=== PATIENT | male | born 1940 | race Caucasian/White ===

== ENCOUNTER 2016-04-27 15:34 | Inpatient (IN) | payer MEDICARE ==
[~2016-04-27] VITALS: Ht 167.6 cm; Wt 108.9 kg
[2016-04-27] MEDS ORDERED: SODIUM CHLORIDE 0.9% 1,000 ML ONE (16:59)
[2016-04-27] MEDS ORDERED: CEFTRIAXONE 1 GM VIAL ONE (17:32)
[2016-04-27] MEDS ORDERED: SODIUM CHLORIDE 0.9% 100 ML IV ONE (17:33)
[2016-04-27] MEDS ORDERED: DEXTROSE 50% SYRINGE 50 ML IV PRN ×2 (17:50→17:55)
[2016-04-27] MEDS ORDERED: GLUCAGON 1 MG VIAL IM PRN ×2 (17:50→17:55)
[2016-04-27] MEDS: LEVEMIR INSULIN SUBQ SCH (17:55)
[2016-04-27] MEDS ORDERED: humuLIN REG INSULIN IV PUSH ONE (17:55)
[2016-04-27] MEDS ORDERED: humuLIN REG INSULIN ONE (18:25)
[2016-04-27] MEDS ORDERED: LEVEMIR INSULIN SUBQ ONE (18:26)
[2016-04-27 19:00] VITALS: BP_SYST 106; RESP 18; TEMP 98.5; BMI 38.9
[2016-04-27] MEDS: GABAPENTIN 300 MG CAP PO SCH (20:30)
[2016-04-27] MEDS: glipiZIDE 5 MG TAB PO SCH (20:30)
[2016-04-27] MEDS: Carvedilol 6.25 MG TAB PO SCH (20:30)
[2016-04-27] MEDS: SODIUM CHLORIDE 0.9% 1,000 ML IV SCH (22:00)
[2016-04-27] MEDS: ALPRAZOLAM 0.25 MG TAB PO PRN (22:36)
[2016-04-28] VITALS (7 sets, daily range): BP systolic 102–152; RESP 18–20; TEMP 97.4–98.4
[2016-04-28] MEDS: PANTOPRAZOLE 40 MG TAB PO SCH (06:25)
[2016-04-28] MEDS: CEFTRIAXONE 1 GM in SODIUM CHLORIDE 0.9% 50 ML IV SCH (08:21)
[2016-04-28] MEDS: LEVEMIR INSULIN SUBQ SCH (08:21)
[2016-04-28] MEDS: SODIUM CHLORIDE 0.9% 1,000 ML IV SCH ×2 (08:21→18:43)
[2016-04-28] MEDS: Carvedilol 6.25 MG TAB PO SCH ×2 (08:22→20:57)
[2016-04-28] MEDS: glipiZIDE 5 MG TAB PO SCH (08:22)
[2016-04-28] MEDS: GABAPENTIN 300 MG CAP PO SCH ×2 (08:22→20:58)
[2016-04-28] MEDS ORDERED: glipiZIDE 5 MG TAB PO ONE (09:35)
[2016-04-28] MEDS: SITAGLIPTIN 50 MG TAB PO SCH (10:44)
[2016-04-28] MEDS ORDERED: MISSING DOSE XX ONE (20:30)
[2016-04-28] MEDS: ALPRAZOLAM 0.25 MG TAB PO PRN (20:57)
[2016-04-28] MEDS: glipiZIDE 10 MG TAB PO SCH (20:57)
[2016-04-29] MEDS: SODIUM CHLORIDE 0.9% 1,000 ML IV SCH ×2 (03:02→12:28)
[2016-04-29 03:22] VITALS: BP_SYST 118; RESP 20; TEMP 97.6
[2016-04-29] MEDS: PANTOPRAZOLE 40 MG TAB PO SCH (05:06)
[2016-04-29 07:38] VITALS: BP_SYST 123; RESP 20; TEMP 97.9
[2016-04-29] MEDS: CEFTRIAXONE 1 GM in SODIUM CHLORIDE 0.9% 50 ML IV SCH (08:11)
[2016-04-29] MEDS: glipiZIDE 10 MG TAB PO SCH ×2 (08:12→21:43)
[2016-04-29] MEDS: Carvedilol 6.25 MG TAB PO SCH ×2 (08:12→21:43)
[2016-04-29] MEDS: SITAGLIPTIN 50 MG TAB PO SCH (08:13)
[2016-04-29] MEDS: GABAPENTIN 300 MG CAP PO SCH ×2 (08:13→21:43)
[2016-04-29] MEDS: LEVEMIR INSULIN SUBQ SCH (08:14)
[2016-04-29 12:11] VITALS: BP_SYST 120; RESP 18; TEMP 98
[2016-04-29] MEDS ORDERED: SODIUM CHLORIDE 0.9% 1,000 ML IV SCH (12:45)
[2016-04-29 14:57] VITALS: BP_SYST 133; RESP 18; TEMP 97.9
[2016-04-29 20:20] VITALS: BP_SYST 128; RESP 20; TEMP 98.1
[2016-04-29] MEDS: ALPRAZOLAM 0.25 MG TAB PO PRN (21:43)
[2016-04-30] VITALS (7 sets, daily range): BP systolic 114–140; RESP 16–20; TEMP 97.6–98.6
[2016-04-30] MEDS: PANTOPRAZOLE 40 MG TAB PO SCH (05:47)
[2016-04-30] MEDS: CEFTRIAXONE 1 GM in SODIUM CHLORIDE 0.9% 50 ML IV SCH (08:56)
[2016-04-30] MEDS: Carvedilol 6.25 MG TAB PO SCH ×2 (08:56→20:29)
[2016-04-30] MEDS: LEVEMIR INSULIN SUBQ SCH (08:56)
[2016-04-30] MEDS: GABAPENTIN 300 MG CAP PO SCH ×2 (08:57→20:29)
[2016-04-30] MEDS: glipiZIDE 10 MG TAB PO SCH ×2 (08:57→20:29)
[2016-04-30] MEDS: SITAGLIPTIN 50 MG TAB PO SCH (08:57)
[2016-04-30] MEDS ORDERED: MISSING DOSE XX ONE ×2 (15:55→18:00)
[2016-04-30] MEDS ORDERED: LACTULOSE SOLN 20GM/30ML UDC PO ONE (17:05)
[2016-04-30] MEDS: LEVOFLOXACIN 500 MG TAB PO SCH (17:12)
[2016-04-30] MEDS: ALPRAZOLAM 0.25 MG TAB PO PRN (20:30)
[2016-04-30] MEDS: ACETAMINOPHEN 325 MG TAB PO PRN (22:18)
[2016-05-01] MEDS ORDERED: MISSING DOSE XX ONE (03:25)
[2016-05-01 03:40] VITALS: BP_SYST 115; RESP 18; TEMP 97.6
[2016-05-01] MEDS: PANTOPRAZOLE 40 MG TAB PO SCH (05:14)
[2016-05-01 07:18] VITALS: BP_SYST 105; RESP 18; TEMP 98.4
[2016-05-01] MEDS: LEVEMIR INSULIN SUBQ SCH (09:03)
[2016-05-01] MEDS: ACETAMINOPHEN 325 MG TAB PO PRN ×3 (09:05→22:03)
[2016-05-01] MEDS: BACITRACIN OINT TOPICAL SCH (09:05)
[2016-05-01] MEDS: GABAPENTIN 300 MG CAP PO SCH ×2 (09:05→20:07)
[2016-05-01] MEDS: Carvedilol 6.25 MG TAB PO SCH ×2 (09:05→20:07)
[2016-05-01] MEDS: SITAGLIPTIN 50 MG TAB PO SCH (09:06)
[2016-05-01] MEDS: glipiZIDE 10 MG TAB PO SCH ×2 (09:06→20:07)
[2016-05-01] MEDS: LEVOFLOXACIN 500 MG TAB PO SCH (09:06)
[2016-05-01 09:12] VITALS: Ht 167.6 cm; Wt 108.9 kg
[2016-05-01] MEDS: METFORMIN 500 MG TAB PO SCH (12:05)
[2016-05-01 12:13] VITALS: BP_SYST 126; RESP 18; TEMP 98.7
[2016-05-01 14:27] VITALS: BP_SYST 114; RESP 20; TEMP 98
[2016-05-01 19:33] VITALS: BP_SYST 104; RESP 20; TEMP 97.7
[2016-05-01] MEDS: ALPRAZOLAM 0.25 MG TAB PO PRN (20:07)
[2016-05-01 23:32] VITALS: BP_SYST 106; RESP 18; TEMP 98.8
[2016-05-02 04:09] VITALS: BP_SYST 106; RESP 16; TEMP 97.9
[2016-05-02] MEDS: PANTOPRAZOLE 40 MG TAB PO SCH (04:11)
[2016-05-02 07:36] VITALS: BP_SYST 104; RESP 20; TEMP 97.6
[2016-05-02] MEDS: GABAPENTIN 300 MG CAP PO SCH (08:34)
[2016-05-02] MEDS: Carvedilol 6.25 MG TAB PO SCH (08:34)
[2016-05-02] MEDS: glipiZIDE 10 MG TAB PO SCH (08:34)
[2016-05-02] MEDS: SITAGLIPTIN 50 MG TAB PO SCH (08:35)
[2016-05-02] MEDS: LEVOFLOXACIN 500 MG TAB PO SCH (08:35)
[2016-05-02] MEDS: METFORMIN 500 MG TAB PO SCH (08:35)
[2016-05-02] MEDS: LEVEMIR INSULIN SUBQ SCH (08:36)
[2016-05-02] MEDS: BACITRACIN OINT TOPICAL SCH (08:36)
[2016-05-02 11:04] VITALS: BP_SYST 108; RESP 20; TEMP 98.1
[2016-05-02] MEDS: ACETAMINOPHEN 325 MG TAB PO PRN (11:10)
[2016-05-02 11:42] VITALS: BP_SYST 108; RESP 20; TEMP 98.1
[2016-05-02 11:44] VITALS: BP_SYST 108; RESP 20; TEMP 98.1
[2016-05-03] MEDS ORDERED: LEVEMIR INSULIN SUBQ SCH (09:00)
== END 2016-05-02 12:48 | disposition home or self-care (01) | DRG 683 ==
LOC: ENRESERVDT → ENRESERVTM → ER 15:34 → ENPENDDIS 17:41 → EMR 17:41 → PCU2 19:26 → PCU 23:54 → 4NT 04-28 14:33
PROVIDERS: ADMIT Internal Medicine Nephrology; ATTEND Internal Medicine Nephrology
DX: N17.9 Acute kidney failure, unspecified (principal); I13.0 Hypertensive heart and chronic kidney disease with heart failure and stage 1 through stage 4 chronic kidney disease, or unspecified chronic kidney disease; I95.9 Hypotension, unspecified; E11.22 Type 2 diabetes mellitus with diabetic chronic kidney disease; I50.30 Unspecified diastolic (congestive) heart failure; E87.1 Hypo-osmolality and hyponatremia; N39.0 Urinary tract infection, site not specified; E11.65 Type 2 diabetes mellitus with hyperglycemia; E11.42 Type 2 diabetes mellitus with diabetic polyneuropathy; T50.2X5A Adverse effect of carbonic-anhydrase inhibitors, benzothiadiazides and other diuretics, initial encounter; Y92.239 Unspecified place in hospital as the place of occurrence of the external cause; E86.0 Dehydration; B96.20 Unspecified Escherichia coli [E. coli] as the cause of diseases classified elsewhere; I25.10 Atherosclerotic heart disease of native coronary artery without angina pectoris; I25.2 Old myocardial infarction; N18.3 Chronic kidney disease, stage 3 (moderate); M19.90 Unspecified osteoarthritis, unspecified site; Z79.82 Long term (current) use of aspirin
CPT/HCPCS: 36415; 80048; 80053; 81001; 82009; 82947; 83605; 85025; 87040; 87077; 87088; 87186; 93005; 96361; 96365; 96372; 96375